=== PATIENT | female | born 1955 | race African-American/Black ===

== ENCOUNTER 2022-11-24 09:14 | Day surgery (SDC) | payer MEDICARE ==
[2022-11-24] VITALS (9 sets, daily range): BP systolic 131–157; BP diastolic 75–93
[~2022-11-24] VITALS: Ht 165.1 cm; Wt 75.0 kg
[2022-11-24] MEDS ORDERED: normal saline 1,000 ML IV SCH (09:35)
[2022-11-24] MEDS ORDERED: diphenhydrAMINE 25mg capsule PO PRN (09:35)
--- NOTE | 2022-11-24 09:40 | NUR ---
Dr. Jarrell aware pt is on Amoxicillin for a tooth infection, no orders received.
[2022-11-24] MEDS ORDERED: ROSU20TA31 PO (09:54)
[2022-11-24] MEDS ORDERED: GABA-530 PO (09:54)
[2022-11-24] MEDS ORDERED: LOSA50TA64 PO (09:54)
[2022-11-24] MEDS ORDERED: NITR0.4T51 (09:54)
[2022-11-24] MEDS ORDERED: ASPI-611 PO (09:56)
[2022-11-24 10:21] LABS: BASOPHILS % (AUTO) 0.4 % (0-1); EOSINOPHILS % (AUTO) 1.1 % (0-6); HEMATOCRIT 36.6 % (35.0-45.0); HEMOGLOBIN 11.5 g/dl (12.0-16.0); LYMPHOCYTES # (AUTO) 1.5 X10'3 (1.1-4.8); LYMPHOCYTES % (AUTO) 32.1 % (21-51); MEAN CORPUSCULAR HEMOGLOBIN 22.9 PG (27.0-31.0); MEAN CORPUSCULAR HGB CONC 31.6 g/dL (33.0-36.5); MEAN CORPUSCULAR VOLUME 72.4 FL (78-98); MEAN PLATELET VOLUME 7.2 FL (7.4-10.4); MONOCYTES # (AUTO) 0.4 X10'3 (0-0.9); MONOCYTES % (AUTO) 7.7 % (2-12); NEUTROPHILS # (AUTO) 2.8 X10'3 (1.8-7.7); NEUTROPHILS % (AUTO) 58.7 % (42-75); PLATELET COUNT 260 X10'3 (140-440); RED BLOOD COUNT 5.05 X10'6 (4.20-5.60); RED CELL DISTRIBUTION WIDTH 15.1 % (11.5-14.5); WHITE BLOOD COUNT 4.7 X10'3 (4.5-11.0)
[2022-11-24 10:22] LABS: ALBUMIN 4.2 G/DL (3.4-5.0); ANION GAP 11 (8-16); BLOOD UREA NITROGEN 19 MG/DL (7-18); BUN/CREATININE RATIO 27.1 (10.0-20.0); CALCIUM 10.1 MG/DL (8.5-10.1); CHLORIDE 109 MMOL/L (99-107); GLUCOSE 184 MG/DL (70-104); POTASSIUM 4.2 MMOL/L (3.5-5.1); SODIUM 141 MMOL/L (135-145); TOTAL CARBON DIOXIDE 21.2 MMOL/L (24-32); eGFR > 90 ML/MIN
[2022-11-24] MEDS ORDERED: LIDOcaine 1% 30ml preserv. free vial ONE (12:10)
[2022-11-24] MEDS ORDERED: midazolam 1 mg/ML 2ml injection ONE ×2 (12:10→12:35)
[2022-11-24] MEDS ORDERED: heparin 1,000unit/ml 10ml vial 10 ML ONE (12:10)
[2022-11-24] MEDS ORDERED: iohexol 350MG/ML 100ml bottle IV ONE (12:10)
[2022-11-24] MEDS ORDERED: fentaNYL/PF 50MCG/1 ML 2ML syringe ONE (12:10)
[2022-11-24] MEDS ORDERED: iohexol 350 MG/ML 50ML vial IV ONE (12:10)
[2022-11-24] MEDS ORDERED: ondansetron/PF 4mg/2ml inj IV PRN (13:35)
[2022-11-24] MEDS ORDERED: normal saline 1000ml 1,000 ML IV SCH (13:35)
[2022-11-24] MEDS ORDERED: proCHLORperazine 10 MG/2 ml inj IV PRN (13:40)
[2022-11-24] MEDS ORDERED: HYDROcodone/acetaminophen 10/325mg tab PO PRN (13:40)
[2022-11-24] MEDS ORDERED: HYDROcodone/acetaminophen 5mg/325mg tablet PO PRN (13:40)
[2022-11-25] MEDS ORDERED: SODIUM BICARB 150mEq/D5W 1L 999 ML IV SCH ×2 (09:35)
== END 2022-11-24 16:35 | disposition home or self-care (01) ==
LOC: SSTAY O 09:14
PROVIDERS: ATTEND Internal Medicine Cardiovascular Disease
DX: R07.89 Other chest pain (principal); I25.10 Atherosclerotic heart disease of native coronary artery without angina pectoris; I25.2 Old myocardial infarction; I10 Essential (primary) hypertension; E78.5 Hyperlipidemia, unspecified; E11.9 Type 2 diabetes mellitus without complications; Z87.891 Personal history of nicotine dependence; Z79.82 Long term (current) use of aspirin; Z79.899 Other long term (current) drug therapy
CPT/HCPCS: 36415; 80048; 82948; 83735; 85025; 85610; 93005; 93458; 99152; 99153; C1760; C1894; J1644; J2250; J3010; J3490; J7030; Q0163; Q9967; A6258; C1725